=== PATIENT | male | born 1980 | race Caucasian/White ===

== ENCOUNTER 2019-10-07 21:26 | Observation (INO) ==
[2019-10-07] MEDS ORDERED: ONDANSETRON 4 MG/2 ML VIAL IV ONE (21:37)
[2019-10-07] MEDS ORDERED: LACTATED RINGERS 1,000 ML IV ONE ×2 (21:37→22:53)
--- NOTE | 2019-10-07 21:50 | Emergency Department Note ---
General Adult HPI - General Chief complaint: Cold/Flu Symptoms Stated complaint: fever Time Seen by Provider: 10/07/19 21:36 Source: patient Mode of arrival: ambulatory Limitations: no limitations - History of Present Illness HPI Narrative: This patient had an I&D of a left elbow abscess 10 days ago and it was MRSA and is taking Bactrim for it. He was here in the ER earlier today for a dressing change and some lab work was done he did not appear to be septic. He is back tonight feeling worse with a higher fever and tachycardia. He is homeless dk ing in a car. - Related Data Home Medications Medication Instructions Recorded Confirmed Sulfamethoxazole/Trimethoprim 1 tab PO DAILY 10/08/19 10/08/19 [Bactrim Ds] Allergies Allergy/AdvReac Type Severity Reaction Status Date / Time diphenhydramine Allergy Severe ANAPHYLAXIS. Verified 10/07/19 21:33 [From BENADRYL] CARDIAC ARREST. Review of Systems All systems ED: reviewed and negative except as stated. Past Medical History - Past Medical History [facility] Narrative: Medical History Superficial bruising (Acute) Strain of lumbar region (Acute) Abdominal pain (Acute) Constipation (Acute) Strain of neck muscle (Acute) Heat collapse (Acute) Migraine (Acute) Cellulitis (Acute) Medical history: Reports: liver disease, migraine, other (cerebral palsy. Pancreatitis. Colitis. Ulcers. Prediabetes.) Psychiatric history: Reports: anxiety, depression Surgical history ED: Reports: non-contributory - Social History smoking status: Current every day smoker Alcohol use: Reports: Occasionally Drug use: Reports: unknown, marijuana, IVDU Physical Exam Left elbow is bandaged in it which is changed to few hours ago. I have not taken it apart to look at it again tonight. Limitations: no limitations General appearance: alert Head: atraumatic Eye: Present: normal appearance ENT: Present: normal exam Neck: Present: normal inspection Chest: Present: normal inspection Respiratory: Present: normal lung sounds bilaterally Cardiovascular: Present: regular rate, normal rhythm, normal heart sounds Abdominal: Present: soft. Absent: distention, tenderness Neurological: Present: alert Psychiatric: Present: normal affect Skin: Present: warm, dry Course Vital Signs Temperature 102.9 F H 10/07/19 21:30 Pulse Rate 131 H 10/07/19 21:30 Respiratory Rate 20 10/07/19 21:30 Pulse Oximetry (%) 93 10/07/19 21:30 Temperature 100.3 F H 10/08/19 05:37 Pulse Rate 106 H 10/08/19 04:36 Respiratory Rate 20 10/08/19 04:36 Blood Pressure 114/65 10/08/19 04:36 Pulse Oximetry (%) 89 L 10/08/19 04:36 Medical Decision Making - MDM Narrative Medical decision making narrative: Patient was positive for influenza A and he seemed a little hypoxic with O2 sat of 90% on room air. He has had a slight cough. Chest x-ray was slightly worrisome for a posterior infiltrate. Because of his current MRSA infection and the risk of pneumonia with influenza we admitted him to the hospital observation. I did give him a gram of vancomycin IV. - Lab Data Lab results reviewed: Yes I reviewed the patient's lab results. Result diagrams: 10/07/19 21:50 10/07/19 21:50 Lab Results 10/07/19 10/07/19 10/07/19 Range/Units 21:50 21:50 21:50 WBC 9.5 (4.50-11.00) K/mcL RBC 4.57 L (4.63-6.08) M/mcL Hgb 13.1 L (13.7-17.5) g/dL Hct 40.3 (40.1-51.0) % MCV 88.2 (80.0-100.0) fL MCH 28.7 (26.0-34.0) pg MCHC 32.5 (31.0-36.0) g/dL RDW 14.4 (11.5-14.5) % Plt Count 465 H (140-440) K/mcL MPV 8.7 (7.4-10.4) fL Gran % 85.9 H (38.0-78.0) % Lymph % (Auto) 5.7 L (15.5-49.0) % [place] % (Auto) 8.0 (1.0-12.0) % Eos % (Auto) 0 (0.0-7.0) % Baso % (Auto) 0.4 (0.0-2.0) % Gran # 8.18 H (1.80-8.00) K/mcL Lymph # (Auto) 0.54 L (1.50-4.80) K/mcL [place] # (Auto) 0.76 (0.10-0.90) K/mcL Eos # (Auto) 0 (0.00-0.70) K/mcL Baso # (Auto) 0.04 (0.00-0.30) K/mcL VBG Lactic Acid 2.1 H (0.5-2.0) mmol/L Sodium 139 (133-145) mmol/L Potassium 4.0 (3.3-5.1) mmol/L Chloride 101 (96-108) mmol/L Carbon Dioxide 23 (22-30) mmol/L Anion Gap 15.0 (8-16) BUN 16 (6-20) mg/dl Creatinine 1.1 (0.7-1.2) mg/dl GFR Calculation 84 Glucose 100 (70-105) mg/dL Calcium 9.3 (8.6-10.4) mg/dl Total Bilirubin 0.2 (0.0-1.0) mg/dL AST 16 (0-37) U/l ALT 14 (0-40) U/l Alkaline Phosphatase 129 H (39-117) U/L Total Protein 6.7 (5.9-8.4) gm/dL Albumin 4.0 (3.2-5.2) gm/dL Globulin 2.7 (2.2-3.7) gm/dL Albumin/Globulin Ratio 1.5 (1.0-2.3) - Radiology Data Radiology results reviewed: Yes I reviewed the patient's radiology results. Disposition Pt seen by EDUCATION TEACHER/PA only: No Clinical Impression: Influenza A, Pneumonia, Infection of skin due to methicillin resistant Staphylococcus aureus (MRSA) Disposition: Xfer As Outpt/Obs ([facility]) Condition: Good Time of Disposition: 23:41
[2019-10-07] MEDS ORDERED: ACETAMINOPHEN 325 MG TABLET PO ONE (22:34)
[2019-10-07 22:36] LABS: Basophils # (Auto) 0.04 K/mcL (0.00-0.30); Basophils % (Auto) 0.4 % (0.0-2.0); Eosinophils # (Auto) 0 K/mcL (0.00-0.70); Eosinophils % (Auto) 0 % (0.0-7.0); Granulocytes % (Auto) 85.9 % (38.0-78.0); Hematocrit 40.3 % (40.1-51.0); Hemoglobin 13.1 g/dL (13.7-17.5); Lymphocytes # (Auto) 0.54 K/mcL (1.50-4.80); Lymphocytes % (Auto) 5.7 % (15.5-49.0); Mean Cell Volume 88.2 fL (80.0-100.0); Mean Corpuscular HGB Conc 32.5 g/dL (31.0-36.0); Mean Platelet Volume 8.7 fL (7.4-10.4); Monocytes # (Auto) 0.76 K/mcL (0.10-0.90); Platelet Count 465 K/mcL (140-440); RBC 4.57 M/mcL (4.63-6.08); Red Cell Distribution Width 14.4 % (11.5-14.5); WBC 9.5 K/mcL (4.50-11.00)
[2019-10-07 22:54] LABS: ALT/SGPT 14 U/l (0-40); AST/SGOT 16 U/l (0-37); Albumin/Globulin Ratio 1.5 (1.0-2.3); Alkaline Phosphatase 129 U/L (39-117); Bilirubin,Total 0.2 mg/dL (0.0-1.0); Blood Urea Nitrogen 16 mg/dl (6-20); Calcium 9.3 mg/dl (8.6-10.4); Carbon Dioxide 23 mmol/L (22-30); Chloride 101 mmol/L (96-108); Globulin 2.7 gm/dL (2.2-3.7); Glomerular Filtration Rate 84; Glucose 100 mg/dL (70-105)
[2019-10-07] MEDS ORDERED: OSELTAMIVIR PHOSPHATE 75 MG CAPSULE PO ONE (23:40)
[2019-10-08] MEDS ORDERED: VANCOMYCIN 1,000 MG in 0.9 % SODIUM CHLORIDE 250 ML IV ONE (00:02)
[2019-10-08] MEDS: LACTATED RINGERS 1,000 ML IV SCH ×4 (01:44→23:30)
[2019-10-08] MEDS: ACETAMINOPHEN 325 MG TABLET PO PRN ×3 (04:52→19:13)
--- NOTE | 2019-10-08 05:43 | XRay Report ---
CLINICAL INFORMATION:Fever. Smoking history. TECHNIQUE: PA and lateral upright chest x-ray COMPARISON: None FINDINGS:No pulmonary parenchymal consolidation. No focal infiltrate. Interstitial markings are prominent. Heart size and vascularity are normal. No pulmonary edema or pulmonary congestion. There is no pleural fluid. IMPRESSION: Prominent interstitial markings. No acute or focal abnormality. Interpreted and Authenticated by: Irwin Gray 10/08/19
--- NOTE | 2019-10-08 08:15 | Internal Med History&Physical ---
Medical - H&P: HPI Patient information: Note initiated : 10/08/19 at 8:15 am Service Date, if different from initiated Date: [] Patient: Spencer Bland a 39 y/o M admitted on 10/08/19 for fever. Chief Complaint: [] Chief complaint: Fever with flu symptoms History of present illness: Mr. Bland is a 39 year old homeless M with a history of injection drug use who presents to the ER with high-grade fever, body ache and flulike symptoms. Patient was recently evaluated for left elbow abscess and underwent I&D September 28. He shortly thereafter left AMA. Per patient symptoms started roughly 3 days prior to presentation. No associated cough or productive sputum. Patient denies associated rash, diarrhea endorses a headache but no photophobia. Initial work-up in the ER was consistent with flu positive however chest imaging was unequivocal. Hospital service was consulted in light of high-grade fever and possibility of bacteremia in the setting of IV drug use. The time evaluation patient is alert but not willing to provide answer to questions. He insisted that he would want some rest and would not like to talk at this moment. Most of the history was obtained from review of medical records and ER physician. Review of systems Attempted but could not performed Medical - H&P: PMH Medical history: Injection drug use Social history: Currently homeless and lives in a car with his girlfriend History of injection drug use Medical - H&P: Meds Home Medications Medication Instructions Recorded Confirmed Type Sulfamethoxazole/Trimethoprim 1 tab PO DAILY 10/08/19 10/08/19 History [Bactrim Ds] Allergies Allergy/AdvReac Type Severity Reaction Status Date / Time diphenhydramine Allergy Severe ANAPHYLAXIS. Verified 10/07/19 21:33 [From BENADRYL] CARDIAC ARREST. Medical - H&P: Exam - Constitutional Vitals: Temp Pulse Resp BP Pulse Ox 100.0 F H 103 H 20 102/59 90 10/08/19 08:00 10/08/19 08:00 10/08/19 08:00 10/08/19 08:00 10/08/19 08:00 Exam: Alert oriented Nonlabored breathing Anxious Non-cooperative Tachypneic No obvious lymphedema skin rash Further exam could not be done due to patient's lack of cooperation Medical - H&P: Reslt - Labs CBC & Chem 7: 10/07/19 21:50 10/07/19 21:50 Labs: Short CBC 10/07/19 Range/Units 21:50 WBC 9.5 (4.50-11.00) K/mcL Hgb 13.1 L (13.7-17.5) g/dL Hct 40.3 (40.1-51.0) % Plt Count 465 H (140-440) K/mcL BMP 10/07/19 21:50 Sodium 139 Potassium 4.0 Chloride 101 Carbon Dioxide 23 BUN 16 Creatinine 1.1 Glucose 100 Calcium 9.3 Liver Function 10/07/19 Range/Units 21:50 Total Bilirubin 0.2 (0.0-1.0) mg/dL AST 16 (0-37) U/l ALT 14 (0-40) U/l Alkaline Phosphatase 129 H (39-117) U/L Albumin 4.0 (3.2-5.2) gm/dL Medical - H&P: A/P (1) Influenza A Current visit: Yes Status: Acute * Acute influenza A-continue Tamiflu twice daily. Droplet precaution. Supportive and symptomatic management * Fever continue symptomatic management however rule out bacteremia in light of IV drug use. * Elbow wounds status post incision drainage-wound care consult * IV drug use counseled * Full code Plan * Obs Admit * Pancultures * Tamiflu * Wound care consult * Supportive management Medical - H&P: Qual - VTE Deep Vein Thrombosis/Pulmonary Embolism Present on Admission: No
[2019-10-08] MEDS: OSELTAMIVIR PHOSPHATE 75 MG CAPSULE PO SCH ×2 (10:43→20:14)
[2019-10-08] MEDS: GENTAMICIN SULFATE 40 MG, CLINDAMYCIN 300 MG, BACITRACIN 25,000 UNIT in SODIUM CHLORIDE... IRR SCH (20:12)
[2019-10-09] MEDS: ACETAMINOPHEN 325 MG TABLET PO PRN ×5 (00:13→22:03)
[2019-10-09] MEDS: LACTATED RINGERS 1,000 ML IV SCH ×2 (07:40→16:01)
[2019-10-09] MEDS: OSELTAMIVIR PHOSPHATE 75 MG CAPSULE PO SCH ×2 (09:48→21:45)
[2019-10-09] MEDS: GENTAMICIN SULFATE 40 MG, CLINDAMYCIN 300 MG, BACITRACIN 25,000 UNIT in SODIUM CHLORIDE... IRR SCH ×2 (09:49→21:45)
[2019-10-09] MEDS ORDERED: FLU VACC QS2019-20(6MOS UP)/PF 60 MCG/0.5 ML SYRINGE IM ONE (10:00)
[2019-10-09 10:55] LABS: Hematocrit 41.5 % (40.1-51.0); Hemoglobin 13.3 g/dL (13.7-17.5); Mean Cell Volume 89.1 fL (80.0-100.0); Mean Platelet Volume 9.5 fL (7.4-10.4); Platelet Count 366 K/mcL (140-440); RBC 4.66 M/mcL (4.63-6.08); Red Cell Distribution Width 14.9 % (11.5-14.5); WBC 9.1 K/mcL (4.50-11.00)
[2019-10-09 11:02] LABS: ALT/SGPT 12 U/l (0-40); AST/SGOT 21 U/l (0-37); Albumin 3.5 gm/dL (3.2-5.2); Albumin/Globulin Ratio 1.4 (1.0-2.3); Alkaline Phosphatase 95 U/L (39-117); Bilirubin,Direct < 0.2 mg/dL (0.0-0.3); Bilirubin,Total 0.2 mg/dL (0.0-1.0); Blood Urea Nitrogen 13 mg/dl (6-20); Calcium 8.9 mg/dl (8.6-10.4); Carbon Dioxide 26 mmol/L (22-30); Chloride 103 mmol/L (96-108); Globulin 2.5 gm/dL (2.2-3.7); Glomerular Filtration Rate 84; Glucose 98 mg/dL (70-105); Lactate Dehydrogenase 218 U/L (94-250); Phosphorous 3.7 mg/dL (2.7-4.5); Triglycerides 56 mg/dl (<150); Uric Acid 4.4 mg/dL (2.5-8.0)
--- NOTE | 2019-10-09 11:14 | General Surgery Consult Note ---
History of Present Illness Patient information: Note initiated : 10/09/19 at 11:12 am Service Date, if different from initiated Date: [] Patient: Spencer Bland 39 y/o M admitted on 10/08/19 for fever. Chief Complaint: [] Consult date: 10/08/19 Requesting physician: Chauncey Palomares (Wound Care. LEFT elbow wound) History of present illness: I saw this patient yesterday along with Fabby RN, Inpatient wound care nurse yesterday and reassessed him again today on rounds. Reviewed EHR and input from other physicians. Medications and Allergies Home Medications Medication Instructions Recorded Confirmed Type Sulfamethoxazole/Trimethoprim 1 tab PO DAILY 10/08/19 10/08/19 History [Bactrim Ds] Allergies Allergy/AdvReac Type Severity Reaction Status Date / Time diphenhydramine Allergy Severe ANAPHYLAXIS. Verified 10/07/19 21:33 [From BENADRYL] CARDIAC ARREST. Exam Temp Pulse Resp BP Pulse Ox 98.4 F 77 16 99/61 91 10/09/19 08:00 10/09/19 08:30 10/09/19 08:30 10/09/19 08:00 10/09/19 08:30 - General physical appearance well developed, well nourished, no distress, other (Anxious and wants pain meds ( Dependence vs Addiction ) ) - Eyes PERRL, normal ocular movement - ENT normal pinna, normal nares, no congestion - Head Head exam IM: Present: atraumatic, normocephalic - Neck no masses, trachea midline, no venous distension - Cardiovascular Cardiovascular exam IM: Present: normal rate and rhythm - Respiratory normal respiratory effort, clear to auscultation - Abdomen Abdomen: Present: soft, non tender, bowel sounds - Integumentary Present: other (CLEAN open post surgical wound LEFT medial volar elbow ( Previous site of IV injections ) post surgical debridement. GRANULATING well See photographs and nurse's note for measurements. Periwound skin and subcutaneous tissue is at baseline. NO purulence, NO odor, No drainage. ) - Neurologic Present: other (NO gross neurovasculat deficits around and distal to this wound site. ) - Musculoskeletal Present: normal gait, normal posture - Psychiatric Present: oriented to time, oriented to person, oriented to place, speech is normal, other (Reluctant to answer specific questions related to wound and t reatments in past. ) Results - Labs 10/09/19 06:18 10/09/19 06:18 Abnormal lab results 10/09/19 Range/Units 06:18 Hgb 13.3 L (13.7-17.5) g/dL RDW 14.9 H (11.5-14.5) % Diabetes panel 10/09/19 Range/Units 06:18 Sodium 141 (133-145) mmol/L Potassium 4.2 (3.3-5.1) mmol/L Chloride 103 (96-108) mmol/L Carbon Dioxide 26 (22-30) mmol/L BUN 13 (6-20) mg/dl Creatinine 1.1 (0.7-1.2) mg/dl Glucose 98 (70-105) mg/dL Calcium 8.9 (8.6-10.4) mg/dl AST 21 (0-37) U/l ALT 12 (0-40) U/l Alkaline Phosphatase 95 (39-117) U/L Total Protein 6.0 (5.9-8.4) gm/dL Albumin 3.5 (3.2-5.2) gm/dL Triglycerides 56 (<150) mg/dl Calcium panel 10/09/19 Range/Units 06:18 Calcium 8.9 (8.6-10.4) mg/dl Phosphorus 3.7 (2.7-4.5) mg/dL Albumin 3.5 (3.2-5.2) gm/dL Pituitary panel 10/09/19 Range/Units 06:18 Sodium 141 (133-145) mmol/L Potassium 4.2 (3.3-5.1) mmol/L Chloride 103 (96-108) mmol/L Carbon Dioxide 26 (22-30) mmol/L BUN 13 (6-20) mg/dl Creatinine 1.1 (0.7-1.2) mg/dl Glucose 98 (70-105) mg/dL Calcium 8.9 (8.6-10.4) mg/dl Adrenal panel 10/09/19 Range/Units 06:18 Sodium 141 (133-145) mmol/L Potassium 4.2 (3.3-5.1) mmol/L Chloride 103 (96-108) mmol/L Carbon Dioxide 26 (22-30) mmol/L BUN 13 (6-20) mg/dl Creatinine 1.1 (0.7-1.2) mg/dl Glucose 98 (70-105) mg/dL Calcium 8.9 (8.6-10.4) mg/dl Total Bilirubin 0.2 (0.0-1.0) mg/dL AST 21 (0-37) U/l ALT 12 (0-40) U/l Alkaline Phosphatase 95 (39-117) U/L Total Protein 6.0 (5.9-8.4) gm/dL Albumin 3.5 (3.2-5.2) gm/dL All other labs normal. Assessment and Plan (1) Wound of left upper extremity Assessment: S/P surgical debridement of wound LEFT medial elbow region. H/O prior IVDA and abscess drained and debrided at [facility], Patient left AMA and presented at [facility], ER. Blood cultures Negative thus far. Granulating wound, Healing by second intention. Plan: Continue ongoing local wound care. Following patient with Hospitalist. If D/C, will see [facility] is wound care clinic in 1 week. Status: Acute Priority: Medium Qualifiers: Encounter type: initial encounter Qualified Code(s): S41.102A - Unspecified open wound of left upper arm, initial encounter
[2019-10-09 13:51] LABS: Band Neutrophils % 2 % (0-10); Basophils % (Manual) 2 % (0-2); Lymphocytes % 15 % (15-49); Monocytes % (Manual) 10 % (1-12); Platelet Estimate NORMAL (NORMAL); RBC Morphology NORMAL (NORMAL); Segmented Neutrophils % 71 % (38-78)
--- NOTE | 2019-10-09 19:32 | Internal Med Progress Note ---
Medical - PN: Subj Patient information: Note initiated : 10/09/19 at 7:29 pm Service Date, if different from initiated Date: [] Patient: Spencer Bland a 39 y/o M admitted on 10/08/19 for fever. Chief Complaint: [] Interval history: Mr. Bland is a 39 year old homeless M with a history of injection drug use who presents to the ER with high-grade fever, body ache and flulike symptoms. Patient was recently evaluated for left elbow abscess and underwent I&D September 28. He shortly thereafter left AMA. Per patient symptoms started roughly 3 days prior to presentation. No associated cough or productive sputum. Patient denies associated rash, diarrhea endorses a headache but no photophobia. Initial work-up in the ER was consistent with flu positive however chest imaging was unequivocal. Hospital service was consulted in light of high-grade fever and possibility of bacteremia in the setting of IV drug use. The time evaluation patient is alert but not willing to provide answer to questions. He insisted that he would want some rest and would not like to talk at this moment. Most of the history was obtained from review of medical records and ER physician. 10/09-patient doing well. No overnight events. T-max 102. Left elbow wound managed by Dr. Mercado wound care. No other concerns per nursing staff. Stable labs and hemodynamics. Anticipate discharge in 24 hours. - Constitutional Vitals: Vital Signs Temp Pulse Resp BP Pulse Ox 98.4 F 67 16 95/56 92 10/09/19 16:00 10/09/19 16:00 10/09/19 16:00 10/09/19 16:00 10/09/19 16:00 Period Temp Pulse Resp BP Sys/Jin Pulse Ox Last 24 Hr 97.8 F-100.1 F 65-80 16-20 93-102/56-66 91-95 Intake and Output 10/09/19 10/09/19 10/09/19 05:59 13:59 21:59 Intake Total 1537 1240 1700 Balance 1537 1240 1700 Intake & Output: Intake & Output 10/09/19 10/09/19 10/09/19 05:59 13:59 21:59 Intake Total 1537 1240 1700 Balance 1537 1240 1700 Intake: IV 817 1000 1000 Lactated Ringers 1,000 ml @ 975 173 0841 1000 mls/hr IV .Q8H [facility] Rx#: [id number] Oral 720 240 700 Other: Meal yogurt Lunch Percent of Meal Consumed 100% 75% Feeding Ability Independent Independent # Voids 1 1 1 General appearance: no acute distress Exam: Alert oriented Nonlabored breathing No anxiety Nondistended abdomen Medical - PN: Obj Da - Labs CBC & Chem 7: 10/09/19 06:18 10/09/19 06:18 Labs: Abnormal Lab Results 10/09/19 10/07/19 10/07/19 06:18 21:50 21:50 RBC Hgb 13.3 L RDW 14.9 H Plt Count Gran % Lymph % (Auto) Gran # Lymph # (Auto) VBG Lactic Acid 2.1 H Alkaline Phosphatase 129 H 10/07/19 21:50 RBC 4.57 L Hgb 13.1 L RDW Plt Count 465 H Gran % 85.9 H Lymph % (Auto) 5.7 L Gran # 8.18 H Lymph # (Auto) 0.54 L VBG Lactic Acid Alkaline Phosphatase Meds: Medications Acetaminophen (Tylenol) 650 mg PO Q6HP PRN PRN Reason: PAIN/FEVER > 101 Last Admin: 10/09/19 16:01 Dose: 650 mg Documented by: Lactated Ringer's (Lactated Ringers) 1,000 mls @ 125 mls/hr IV .Q8H [facility] Last Admin: 10/09/19 16:01 Dose: 125 mls/hr Documented by: Gentamicin Sulfate 40 mg/Clindamycin Phosphate 300 mg/Bacitracin 25,000 unit/ Sodium Chloride 503 mls @ 0 mls/hr IRR BID [facility] Last Admin: 10/09/19 09:49 Dose: 10 mls/hr Documented by: Oseltamivir Phosphate (Tamiflu) 75 mg PO BID [facility] Last Admin: 10/09/19 09:48 Dose: 75 mg Documented by: Medical - PN: A/P - Time Spent With Patient Total time spent is greater than 50% in coordination of care (as documented) at patient's floor/unit and/or counseling patient: 15 - 24 minutes (1) Influenza A Status: Acute Assessment and plan: * Acute influenza A-continue Tamiflu twice daily. Droplet precaution. Continue supportive and symptomatic management * Fever continue symptomatic management . Negative cultures so far * Left Elbow wounds status post incision drainage S and Hector-wound care on board. Dressing as per wound care physician. * IV drug use counseled Plan * Continue Tamiflu * Continue supportive management * Wound care * Discharge planning likely 24 hours Current Visit: Yes Medical - PN: Qual - VTE Deep Vein Thrombosis/Pulmonary Embolism Present on Admission: No
[2019-10-09] MEDS: 0.9 % SODIUM CHLORIDE 10 ML SYRINGE IV SCH (22:04)
[2019-10-09] MEDS ORDERED: NICOTINE 21 MG PATCH ONE (22:15)
[2019-10-09] MEDS: NICOTINE 21 MG PATCH TOPICAL SCH (22:17)
[2019-10-10] MEDS: ACETAMINOPHEN 325 MG TABLET PO PRN (03:59)
[2019-10-10] MEDS: 0.9 % SODIUM CHLORIDE 10 ML SYRINGE IV SCH (07:25)
[2019-10-10] MEDS ORDERED: ACETAMINOPHEN 325 MG TABLET PO PRN (08:45)
[2019-10-10] MEDS ORDERED: SULFAMETHOXAZOLE/TRIMETHOPRIM 1 TABLET PO SCH (09:00)
[2019-10-10] MEDS: OSELTAMIVIR PHOSPHATE 75 MG CAPSULE PO SCH (09:37)
[2019-10-10] MEDS: NICOTINE 21 MG PATCH TOPICAL SCH (09:38)
[2019-10-10] MEDS: GENTAMICIN SULFATE 40 MG, CLINDAMYCIN 300 MG, BACITRACIN 25,000 UNIT in SODIUM CHLORIDE... IRR SCH (09:39)
[2019-10-10 10:33] LABS: Hematocrit 43.8 % (40.1-51.0); Mean Cell Volume 90.1 fL (80.0-100.0); Mean Platelet Volume 9.8 fL (7.4-10.4); Platelet Count 449 K/mcL (140-440); RBC 4.86 M/mcL (4.63-6.08); Red Cell Distribution Width 14.6 % (11.5-14.5); WBC 5.8 K/mcL (4.50-11.00)
[2019-10-10 10:43] LABS: ALT/SGPT 14 U/l (0-40); AST/SGOT 19 U/l (0-37); Albumin 3.9 gm/dL (3.2-5.2); Albumin/Globulin Ratio 1.4 (1.0-2.3); Alkaline Phosphatase 103 U/L (39-117); Bilirubin,Direct < 0.2 mg/dL (0.0-0.3); Bilirubin,Total < 0.2 mg/dL (0.0-1.0); Blood Urea Nitrogen 19 mg/dl (6-20); Calcium 9.2 mg/dl (8.6-10.4); Carbon Dioxide 25 mmol/L (22-30); Chloride 101 mmol/L (96-108); Globulin 2.8 gm/dL (2.2-3.7); Glomerular Filtration Rate 94; Glucose 91 mg/dL (70-105); Lactate Dehydrogenase 227 U/L (94-250); Phosphorous 4.1 mg/dL (2.7-4.5); Triglycerides 153 mg/dl (<150); Uric Acid 4.8 mg/dL (2.5-8.0)
--- NOTE | 2019-10-10 10:57 | Discharge Summary ---
Medical - DS: Prov Patient information: Note initiated : 10/10/19 at 10:55 am Service Date, if different from initiated Date: [] Patient: Spencer Bland 39 y/o M admitted on 10/08/19 for fever. Chief Complaint: [] Date of admission: 10/08/19 00:58 Discharge date: 10/10/19 Primary care physician: Joan Lewis Consults: 10/08/19 Consult to Physician [CONS] Stat Comment: Consulting Provider: Chauncey Palomares Reason For Exam: Physician to Consult 10/08/19 11:05 Consult to Physician [CONS] Routine Comment: left elbow wound Consulting Provider: Donavan Mercado Reason For Exam: Physician to Consult Medical - DS: Meds - Discharge Medications Prescriptions: Sulfamethoxazole/Trimethoprim [Bactrim Ds] 1 tab PO BID #10 tab Transmission Status: Pending to [id number] Oseltamivir Phosphate [Tamiflu] 75 mg PO BID #8 cap Transmission Status: Pending to [id number] Active and Home Medications: Home Medications Oseltamivir Phosphate [Tamiflu] 75 mg PO BID #8 cap 10/10/19 [Rx Last Taken Unknown] Sulfamethoxazole/Trimethoprim [Bactrim Ds] 1 tab PO BID #10 tab 10/10/19 [Rx Last Taken Unknown] Medical - DS: Hosp Hospital Course: Discharge diagnosis * Acute viral syndrome secondary to influenza A-clinically improved on Tamiflu twice daily. Discharging with advised to continue Tamiflu for additional 4 days * Fever and myalgias clinically improved secondary to acute viral syndrome * Left Elbow cellulitis status post incision drainage managed by wound care doctor responded. Granulating well. Continue additional 5 days oral Bactrim. * IV drug use counseled for cessation and abstinence Brief hospital course Mr. Bland is a 39 year old homeless M with a history of injection drug use who presents to the ER with high-grade fever, body ache and flulike symptoms. Patient was recently evaluated for left elbow abscess and underwent I&D September 28. He shortly thereafter left AMA. Per patient symptoms started roughly 3 days prior to presentation. No associated cough or productive sputum. Patient denies associated rash, diarrhea endorses a headache but no photophobia. Initial work-up in the ER was consistent with flu positive however chest imaging was unequivocal. Hospital service was consulted in light of high-grade fever and possibility of bacteremia in the setting of IV drug use. The time evaluation patient is alert but not willing to provide answer to questions. He insisted that he would want some rest and would not like to talk at this moment. Most of the history was obtained from review of medical records and ER physician. 10/09-patient doing well. No overnight events. T-max 102. Left elbow wound managed by Dr. Mercado wound care. No other concerns per nursing staff. Stable labs and hemodynamics. Anticipate discharge in 24 hours. 10/10-patient doing well. Discharging with advised to continue follow-up with primary care physician and refrain from IV drug use. Continue antibiotic for additional 5 days hold Bactrim for elbow cellulitis and Tamiflu for additional 4 days Discharge diagnosis: . - Time Spent with Patient Total time spent providing and/or coordinating discharge services: Greater than 30 minutes Medical - DS: Exam - Constitutional Vitals: Vital Signs Temp Pulse Resp BP Pulse Ox 10/10/19 08:30 97.9 F 79 16 102/65 94 10/10/19 08:00 82 16 94 10/10/19 03:20 98.6 F 77 16 110/66 92 10/10/19 00:05 98.7 F 69 16 99/74 98 10/09/19 21:45 98.2 F 68 16 102/74 98 10/09/19 16:00 98.4 F 67 16 95/56 92 10/09/19 12:00 97.8 F 65 16 93/57 93 Intake and Output 10/09/19 10/10/19 10/10/19 21:59 05:59 13:59 Intake Total 2180 680 Balance 2180 680 Intake: IV 1000 Lactated Ringers 1,000 ml @ 125 1000 mls/hr IV .Q8H [facility] Rx#: [id number] Oral 1180 680 Other: Meal Dinner 2x pk grahm crackers Percent of Meal Consumed 75% 100% Feeding Ability Independent Independent # Voids 1 1 Weight 140 lb 9.6 oz Medical - DS: Data Labs on day of discharge: Labs from last 24 hours 10/10/19 10/10/19 10/09/19 06:46 06:46 06:18 WBC 5.8 RBC 4.86 Hgb 14.0 Hct 43.8 MCV 90.1 MCH 28.8 MCHC 32.0 RDW 14.6 H Plt Count 449 H MPV 9.8 Total Counted Pending Seg Neutrophils % Band Neutrophils % Not Reportable Lymphocytes % Monocytes % (Manual) Basophils % (Manual) Platelet Estimate Pending RBC Morphology Pending Sodium 141 141 Potassium 4.2 4.2 Chloride 101 103 Carbon Dioxide 25 26 Anion Gap 15.0 12.0 BUN 19 13 Creatinine 1.0 1.1 GFR Calculation 94 84 Glucose 91 98 Uric Acid 4.8 4.4 Calcium 9.2 8.9 Phosphorus 4.1 3.7 Magnesium 1.7 1.8 Total Bilirubin < 0.2 0.2 Direct Bilirubin < 0.2 < 0.2 GGT 19 15 AST 19 21 ALT 14 12 Alkaline Phosphatase 103 95 Lactate Dehydrogenase 227 218 Total Protein 6.7 6.0 Albumin 3.9 3.5 Globulin 2.8 2.5 Albumin/Globulin Ratio 1.4 1.4 Triglycerides 153 H 56 10/09/19 06:18 WBC 9.1 RBC 4.66 Hgb 13.3 L Hct 41.5 MCV 89.1 MCH 28.5 MCHC 32.0 RDW 14.9 H Plt Count 366 MPV 9.5 Total Counted 100 Seg Neutrophils % 71 Band Neutrophils % 2 Lymphocytes % 15 Monocytes % (Manual) 10 Basophils % (Manual) 2 Platelet Estimate Normal RBC Morphology Normal Sodium Potassium Chloride Carbon Dioxide Anion Gap BUN Creatinine GFR Calculation Glucose Uric Acid Calcium Phosphorus Magnesium Total Bilirubin Direct Bilirubin GGT AST ALT Alkaline Phosphatase Lactate Dehydrogenase Total Protein Albumin Globulin Albumin/Globulin Ratio Triglycerides Preliminary micro results at discharge 10/08/19 00:15 Blood Culture - Preliminary Blood 10/08/19 00:20 Blood Culture - Preliminary Blood Medical - DS: A/P - Patient/Caregiver Discharge Instructions Activity: increase activity as tolerated Diet: Regular Diet Additional Instructions: Bactrim for 5 days Tamiflu for 4 days Refrain from smoking/alcohol and IV drug use Return to ER if worsening fever chills or shortness of breath Prescriptions: Sulfamethoxazole/Trimethoprim [Bactrim Ds] 1 tab PO BID #10 tab Transmission Status: Pending to [id number] Oseltamivir Phosphate [Tamiflu] 75 mg PO BID #8 cap Transmission Status: Pending to [id number] - Problem Maintenance (1) Influenza A Status: Acute - Follow up Plan Follow up with: Joan Lewis ARNP [Primary Care Provider] - Disposition: Home, Self-Care Prognosis: Good Rehab Potential: Fair I certify that the patient requires SNF services: No Overall status at discharge: patient is progressing back to baseline Medical - DS: Qual - VTE Deep Vein Thrombosis/Pulmonary Embolism Present on Admission: No
[2019-10-10 11:51] LABS: Band Neutrophils % 1 % (0-10); Eosinophils % (Manual) 4 % (0-7); Lymphocytes % 26 % (15-49); Monocytes % (Manual) 11 % (1-12); Platelet Estimate INCREASED (NORMAL); RBC Morphology NORMAL (NORMAL); Segmented Neutrophils % 58 % (38-78)
== END 2019-10-10 12:10 | disposition home or self-care (01) ==
LOC: ED 21:26 → MEDSUR 21:26
PROVIDERS: ADMIT Internal Medicine; ATTEND Internal Medicine